=== PATIENT | male | born 1960 | race Hispanic/Latino ===

== ENCOUNTER 2019-03-03 16:53 | Emergency (ER) | payer MEDICARE ==
[~2019-03-03] VITALS: Ht 165.1 cm; Wt 70.0 kg
[~2019-03-03 16:53] MED LIST: ADLT ASA LOW81 MG PO; AMOXICILLIN/CL875 MG OR; AUGMENTIN875TAB PO; BP MEDICATION; CALTRATE 600 PO; LISINOPRIL20 MG PO; MAG OXIDE400 MG PO; MEDDOSEPAK PO; MYCOPHENOLIC A360 MG PO; MYFORTIC360 MG PO; NOT SURE OF MEDS; OMEPRAZOLE20 MG PO; PROGRAF1 MG PO; SENSIPAR30 MG OR; SENSIPAR60 MG PO; SIMVASTATIN40 MG PO; TACROLIMUS1 MG PO; TERAZOSIN1 MG PO; TRIAMCINOLON0.11 EX; [UNRECOGNIZED DRUG - REMARK]
[2019-03-03] MEDS ORDERED: GENTAMICIN SULF5 ML OD (17:45)
[2019-03-03] MEDS ORDERED: (None)3.5 GM OD (17:45)
[2019-03-03 17:58] VITALS: BP 125/66
== END 2019-03-03 17:58 | disposition home or self-care (01) ==
LOC: ED 16:53
DX: H10.9 Unspecified conjunctivitis (principal)